=== PATIENT | female | born 1985 | race Caucasian/White ===

== ENCOUNTER 2018-01-04 13:37 | Outpatient (CLI) | payer OTHER | END 2018-01-04 15:15 | disposition home or self-care (01) | LOC: NST 13:37 | DX: Z34.83 Encounter for supervision of other normal pregnancy, third trimester (principal) ==

== ENCOUNTER 2018-01-07 00:57 | Inpatient (IN) | payer OTHER ==
[~2018-01-07] VITALS: Ht 149.9 cm; Wt 69.9 kg
[2018-01-07] MEDS ORDERED: TOPROL XL25 M1 PO (01:04)
[2018-01-07] MEDS ORDERED: PRENATABS RX T1 EACH PO (01:04)
== END 2018-01-09 13:01 | DRG 807 ==
LOC: LDR 00:57 → OB/GYN 00:57 → LDR 09:39 → OB/GYN 16:54
PROC: 10E0XZZ Delivery of Products of Conception, External Approach (ICD-10-PCS; principal; 2018-01-07)
PROC: 0KQM0ZZ Repair Perineum Muscle, Open Approach (ICD-10-PCS; 2018-01-07)
PROC: 4A1HXCZ Monitoring of Products of Conception, Cardiac Rate, External Approach (ICD-10-PCS; 2018-01-07)
DX: O70.1 Second degree perineal laceration during delivery (principal); Z37.0 Single live birth; Z3A.39 39 weeks gestation of pregnancy